=== PATIENT | female | born 1975 | race Caucasian/White ===

== ENCOUNTER → 2021-09-10 11:36 | Outpatient (BNVA) | payer OTHER, SELFPAY | PROVIDERS: PCP Internal Medicine; Visit Provider Nurse Practitioner Family ==

== ENCOUNTER → 2022-11-03 08:03 | Outpatient (BNVA) | payer OTHER, SELFPAY | PROVIDERS: PCP Internal Medicine; Visit Provider Nurse Practitioner Family ==

== ENCOUNTER 2023-05-10 15:28 | Outpatient (AMB) | payer OTHER, SELFPAY ==
--- NOTE | 2023-05-10 15:37 | A.OFFVIS_ITS ---
Intake Vital Signs 05/10/23 15:40 Height 5 ft 1 in Weight 212 lb BMI 40.1 BP 110/74 Blood Pressure Location Rt brachial Position Sitting Pulse 74 Pulse Source Pulse Oximeter Pulse Oximetry (%) 99 Oxygen Delivery Method Room Air Intake Visit Reasons: 6m follow up- Confirmed Intake Note: Patient presents for 6 month follow up. Patient states I'm having a little less headaches, I had one migraine while in [place] I had covid. Allergies Sulfa (Sulfonamide Antibiotics) Allergy (Mild, Verified 05/10/23 15:42) Hives Medication List - Last Reconciled 05/10/23 by MASON Koch atorvastatin 10 mg PO DAILY celecoxib 200 mg PO DAILY erenumab-aooe (Aimovig Autoinjector) 140 mg subcut monthly; 30 days lisinopril 20 mg PO DAILY omeprazole 20 mg PO BID 30 days prednisone 50 mg PO DAILY PRN rizatriptan 10 mg PO Q2H PRN 90 days sertraline 25 mg PO DAILY topiramate 125 mg (2.5 x 50 mg) PO BID 90 days HPI HPI Comments History of Present Illness Details 47-yr-old female presents for f/u visit. Pt reports she had Covid-19 in early Mar 2023 while she was traveling in [place]. It took her a while to recover, and had a residual cough for about a month which has since resolved. While sick, she had 1 day with more severe headache. She has been having approx 1 migraine lasting 1 day per month. May have an increase in headcahes in the dy[place] prior to the next Aimovig injection. Uses either rizatriptan or sumatriptan prn. PFSH Medical History Arthritis Surgical History Hx of cholecystectomy H/O: hysterectomy Family History Father Hypertension Frontal lobe dementia Mother Hypertension Diabetes Sister Fibromyalgia Social History Alcohol intake: current Alcohol intake frequency: holidays/special occasions only Patient Tobacco Use Status: Never used Tobacco Review of Systems Const All systems reviewed & are unremarkable except as noted in HPI and below Physical Exam Vital Signs: Last Vital Signs Pulse 74 05/10/23 15:40 BP 110/74 05/10/23 15:40 Pulse Ox 99 05/10/23 15:40 Oxygen Delivery Method Room Air 05/10/23 15:40 BMI result Body Mass Index 40.1 Const General: cooperative and no acute distress Orientation/consciousness: patient oriented x3 HEENT Head: Yes normocephalic Resp Effort & Inspection: normal respiratory effort and able to speak in complete sentences Neuro General: patient oriented x3, gait normal and CN's II-XI intact bilaterally Cognition (Neuro): normal cognition Motor exam (neuro): 5/5 motor strength present throughout Psych Appearance: grossly normal Mental Status: mental status grossly normal Speech and movement: Normal speech and movement present Affect: normal affect Attitude: cooperative Thought process: Normal thought process present Thought content: Normal thought content present Insight: Good insight present (Psych) Judgement: Good judgement present (Psych) Assessment & Plan Assessment & Plan (1) Migraine with aura: Code(s): G43.109 - Migraine with aura, not intractable, without status migrainosus (2) Cervicalgia: Code(s): M54.2 - Cervicalgia Plan Continue topiramate 125 mg b.i.d. Continue Aimovig 140 mg subcu q.month.? Continue rizatriptan or sumatriptan as needed. Tylenol 1-2 days before end of Aimovig injection cycle breakthrough headaches- if ineffective, consider gepant. ? f/u in 6 months or sooner prn Medications: New sumatriptan succinate 50 - 100 mg orally at onset of headache, may repeat in 2 hrs PRN; max 2 tabs per day or 4 tabs/week (may take with Ibuprofen) 36 tabs 1RF migraine headache 90 days Refilled erenumab-aooe (Aimovig Autoinjector) 140 mg subcut monthly; 1 mL 6RF 30 days topiramate 125 mg (2.5 x 50 mg) PO BID 450 tabs 1RF 90 days rizatriptan 1 tab at onset of migraine, may repeat in 2 hours (max 12 tabs/month) 10 mg PO Q2H PRN 36 tabs 1RF migraine headache 90 days Coding Level of Care Code Est Pt Level 4 (11066) Diagnoses Migraine with aura G43.109 Cervicalgia M54.2
[2023-05-10 15:40] VITALS: BP 110/74; PULSE 74; O2SAT 99; BMI 40.1
== END 2023-05-10 16:17 | disposition home or self-care (01) ==
PROVIDERS: Visit Provider Nurse Practitioner Family
DX: G43.109 Migraine with aura, not intractable, without status migrainosus (principal); M54.2 Cervicalgia
CPT/HCPCS: 99214

== ENCOUNTER → 2023-05-10 15:28 | Outpatient (BNVA) | payer OTHER, SELFPAY | PROVIDERS: Visit Provider Nurse Practitioner Family ==

== ENCOUNTER 2023-11-07 15:13 | Outpatient (AMB) | payer OTHER, SELFPAY ==
--- NOTE | 2023-11-07 15:26 | A.OFFVIS_ITS ---
Vital Signs 11/07/23 15:28 Height 5 ft 1 in Weight 215 lb 8 oz BMI 40.7 BP 120/82 Blood Pressure Location Lt brachial Position Sitting Pulse 60 Pulse Source Pulse Oximeter Pulse Oximetry (%) 97 Oxygen Delivery Method Room Air Intake Visit Reasons: 6 mo f/u/ LVM w/address Intake Note: Patient presents for 6 months f/u. Renew Aimovig. Migraines are getting better. Allergies Sulfa (Sulfonamide Antibiotics) Allergy (Mild, Verified 11/07/23 15:30) Hives Medication List - Last Reconciled 11/07/23 by MASON Koch atorvastatin 10 mg PO DAILY celecoxib 200 mg PO DAILY erenumab-aooe (Aimovig Autoinjector) 140 mg subcut monthly; 30 days lisinopril 20 mg PO DAILY omeprazole 20 mg PO BID 30 days prednisone 50 mg PO DAILY PRN rizatriptan 10 mg PO Q2H PRN 90 days sertraline 25 mg PO DAILY sumatriptan succinate 50 - 100 mg orally at onset of headache, may repeat in 2 hrs PRN; max 2 tabs per day or 4 tabs/week (may take with Ibuprofen) 90 days topiramate 125 mg (2.5 x 50 mg) PO BID 90 days HPI Comments Details: 48-yr-old female presents for f/u visit. Pt denies any significant interval medical changes. Pt reports she is having 2-4 breakthrough migraines per month, which respond to sumatriptan. May have an increase in headaches in the days prior to the next Aimovig injection. Uses either rizatriptan or sumatriptan prn. She is having an uptick in her neck pain, her arms can be sore. Thinks there is some relation to when her allergy s/s are increased. Trying to be better about doing her PT exercises and stretches. Prior to starting Aimovig, migraine attacks were 3 x's per week. Baseline headache characteristics: May have left-sided electric shocks in face and body for 1 day prior to onset of fluctuating mod-severe left eye/retro-orbital sharp, left foot will feel weird, heat sensitivity, nausea, vomiting Tends to occur in late afternoon now. Prior to Aimovig, tended to occur upon waking. [facility] Medical History Arthritis Surgical History Hx of cholecystectomy H/O: hysterectomy Family History Father Hypertension Frontal lobe dementia Mother Hypertension Diabetes Sister Fibromyalgia Social History Alcohol intake: current Alcohol intake frequency: holidays/special occasions only Patient Tobacco Use Status: Never used Tobacco Physical Exam Vital Signs: Last Vital Signs Pulse 60 11/07/23 15:28 BP 120/82 11/07/23 15:28 Pulse Ox 97 11/07/23 15:28 Oxygen Delivery Method Room Air 11/07/23 15:28 BMI result Body Mass Index 40.7 Const General: cooperative and no acute distress Orientation/consciousness: patient oriented x3 Resp Effort & Inspection: normal respiratory effort and able to speak in complete sentences Neuro General: patient oriented x3 Cranial nerves: Yes CN's II-XII intact bilaterally Cognition (Neuro): normal cognition Psych Appearance: grossly normal Mental Status: mental status grossly normal Speech and movement: Normal speech and movement present Affect: normal affect Attitude: cooperative Assessment & Plan Assessment & Plan (1) Migraine with aura: Code(s): G43.109 - Migraine with aura, not intractable, without status migrainosus Category: Medical (2) Cervicalgia: Code(s): M54.2 - Cervicalgia Category: Medical Plan Continue topiramate 125 mg b.i.d. Continue Aimovig 140 mg subcu q.month., as pt continues to have sognificant reduction in monthly migraine attacks since starting Aimovig many yrs ago. Continue rizatriptan or sumatriptan as needed. Tylenol 1-2 days before end of Aimovig injection cycle breakthrough headaches- if ineffective, consider gepant. Continue cervical exrcises, stretching. Refilled omeprazole for GERD s/s. ? f/u in 6 months or sooner prn Medications: Changed From omeprazole 20 mg PO BID 30 days 60 caps 3RF To omeprazole 20 mg PO BID 90 days 180 caps 1RF Refilled erenumab-aooe (Aimovig Autoinjector) 140 mg subcut monthly; 30 days 1 mL 6RF sumatriptan succinate (0.5 - 1 x 100 mg) 50 - 100 mg orally at onset of headache, may repeat in 2 hrs PRN; max 2 tabs per day or 4 tabs/week (may take with Ibuprofen) 90 days 36 tabs 1RF migraine headache rizatriptan 1 tab at onset of migraine, may repeat in 2 hours (max 12 tabs/month) 10 mg PO Q2H 90 days PRN 36 tabs 1RF migraine headache Coding Level of Care Code Est Pt Level 4 (70228) Diagnoses Migraine with aura G43.109 Cervicalgia M54.2
[2023-11-07 15:28] VITALS: BP 120/82; PULSE 60; O2SAT 97; BMI 40.7
== END 2023-11-07 16:08 | disposition home or self-care (01) ==
PROVIDERS: PCP Internal Medicine; Visit Provider Nurse Practitioner Family
DX: G43.109 Migraine with aura, not intractable, without status migrainosus (principal); M54.2 Cervicalgia
CPT/HCPCS: 99214

== ENCOUNTER → 2023-11-07 15:13 | Outpatient (BNVA) | payer OTHER, SELFPAY | PROVIDERS: PCP Internal Medicine; Visit Provider Nurse Practitioner Family ==

== ENCOUNTER 2024-05-24 14:24 | Outpatient (AMB) | payer OTHER, SELFPAY ==
[2024-05-24 14:31] VITALS: BP 122/78; BMI 40.2
--- NOTE | 2024-05-24 14:31 | A.OFFVIS_ITS ---
Vital Signs 05/24/24 14:31 Height 5 ft 1 in Weight 213 lb BMI 40.2 BP 122/78 Blood Pressure Location Rt brachial Position Sitting Intake Visit Reasons: 6 mo f/u Intake Note: Patient presents for follow up Allergies Sulfa (Sulfonamide Antibiotics) Allergy (Mild, Verified 05/24/24 14:35) Hives HPI Comments Details: 48-yr-old female presents for f/u visit. Pt denies any significant interval medical changes. Pt reports she was having 2-4 breakthrough migraines per month, which respond to sumatriptan. May have an increase in headaches in the days prior to the next Aimovig injecti on in the past. In May she was headache free. In Apr she had one headache which lasted 4 days she had to call out of work, and feels her headaches are well managed with Triptans and Aimovig. She is having an uptick in her neck pain, her arms can be sore. Thinks there is some relation to when her allergy s/s are increase and worse with cold weather. Trying to be better about doing her PT exercises and stretches, doesn't want to go to PT right now. Prior to starting Aimovig, migraine attacks were 3 x's per week. Baseline headache characteristics: May have left-sided electric shocks in face and body for 1 day prior to onset of fluctuating mod-severe left eye/retro-orbital sharp, left foot will feel weird, heat sensitivity, nausea, vomiting, Aura in left side only. Tends to occur in late afternoon now. Prior to Aimovig, tended to occur upon waking. PFSH Medical History Arthritis Surgical History Hx of cholecystectomy H/O: hysterectomy Family History Father Hypertension Frontal lobe dementia Mother Hypertension Diabetes Sister Fibromyalgia Social History Alcohol intake: current Alcohol intake frequency: holidays/special occasions only Patient Tobacco Use Status: Never used Tobacco Review of Systems Const All systems reviewed & are unremarkable except as noted in HPI and below Physical Exam Vital Signs: Last Vital Signs BP 122/78 05/24/24 14:31 BMI result Body Mass Index 40.2 Const General: cooperative, comfortable and no acute distress Nutritional Appearance: obese Orientation/consciousness: patient oriented x3 Eyes Pupils: Equal, round and reactive pupils present Neck Neck: Yes full ROM and Yes supple Resp Effort & Inspection: normal respiratory effort and able to speak in complete sentences Neuro General: patient oriented x3 Cranial nerves: Yes CN's II-XII intact bilaterally, Yes Facial sensation intact/muscles of mastication intact, Yes Equal, round and reactive pupils present, Yes Normal accommodation reflex present, Yes Nystagmus not present, Yes Midline tongue present, Yes Symmetric palate elevation present, Yes Ability to bilaterally rotate head present and Yes Ability to bilaterally elevate shoulders present Gait exam (Neuro): Normal gait present Motor exam (neuro): 5/5 motor strength present throughout and Normal motor muscle tone present throughout Deep tendon reflexes (DTR's): Right triceps reflex intensity grade: 2+, Left triceps reflex intensity grade: 2+, Rt Biceps (C5, C6): 2+, Left biceps reflex intensity grade: 2+, Right brachioradialis reflex intensity grade: 2+, Left brachioradialis reflex intensity grade: 2+, Right patellar reflex intensity grade: 2+ and Left patellar reflex intensity grade: 2+ Coordination: [id number] test normal Psych Insight: Good insight present (Psych) Judgement: Good judgement present (Psych) Assessment & Plan Assessment & Plan (1) Migraine with aura: Code(s): G43.109 - Migraine with aura, not intractable, without status migrainosus Category: Medical Qualifiers: Intractability: intractable Status migrainosus presence: without status migrainosus Qualified Code(s): G43.119 - Migraine with aura, intractable, without status migrainosus (2) Cervicalgia: Code(s): M54.2 - Cervicalgia Category: Medical Plan Patient is on Aimovig for chronic headache prevention and having less migraines. Sumatriptan, and Rizatriptan used for preventative migraines and onset of migraine control. She also uses Topiramate if the migraine doesn't break. Cervicalgia, worsens with the cold weather and allergies, she does PT at home stretching exercises and doesn't want to go to PT at this time. Refilled Omeprazole and Topiramate today will follow up in 6 months or can call if she has concerns. Medications: Refilled omeprazole 20 mg PO BID 90 days 180 caps 1RF topiramate 125 mg (2.5 x 50 mg) PO BID 90 days 450 tabs 1RF Coding Level of Care Code Est Pt Level 3 (00913) Diagnoses Intractable migraine with aura without status migrainosus G43.119 Intractability: intractable Status migrainosus presence: without status migrainosus Cervicalgia M54.2
== END 2024-05-24 15:33 | disposition home or self-care (01) ==
PROVIDERS: PCP Internal Medicine; Visit Provider Physician Assistant Medical
DX: G43.119 Migraine with aura, intractable, without status migrainosus (principal); M54.2 Cervicalgia
CPT/HCPCS: 99213

== ENCOUNTER 2025-01-17 14:45 | Outpatient (AMB) | payer OTHER, SELFPAY ==
--- OUTSIDE RECORDS SUMMARY | 2025-01-17 14:48 | XMS_ITS | Encounter Summary ---
Author Organization [facility] Address [address] [place] [address] Phone Care Team Providers Care Cert Occupational Therapy Asst Name Role Phone Isaiah Lacey DO Unavailable Cheri Aguilar MD Unavailable Isaiah Lacey DO Primary Care Provider [phone] Encounter Details Date Type Department Care Team (Late st Contact Info) Description 07/23/2024 Ancillary Orders [facility], [address] [address] Isaiah Lacey DO [address] [facility], [facility] [address] [place] [address] [email or web address] Abnormal mammogram (Primary Dx) Social History Tobacco Use Types Packs/Day Years Used Date Smoking Tobacco: Never Smokeless Tobacco: Never Alcohol Use Standard Drinks/Week Comments Not Currently 0 (1 standard drink = 0.6 oz pur e alcohol) once every couple of months Child or Family Care Answer Date Record ed Do you have problems with on e of the following making it difficult for you to work, study, or receive health care? No 03/20/2024 Education Answer Date Recorded Are you interested in help w ith more adult education (for example, completing high school, GED, job training, learning the Polish language, technical skills, or developing parenting skills)? No 03/20/2024 Are you concerned about learning? Not on file 03/20/2024 No 03/20/2024 Yes 03/20/2024 Food Answer Date Recorded Within the past 6 months we worried whether our food would run out before we got money to buy more. Never True 03/20/2024 Within the past 6 months the food we bought just didn't last and we didn't have enough money to get more. Never True Residential Stability Answer Date Recor ded What is your housing situation today? I have megan sing 03/20/2024 How many times have you move d in the past 12 months? Zero (I did not move) 03/20/2024 Paying for Meds Answer Date Recorded Do you have trouble paying for medicines? No 03/20/2024 Paying Utility Bills Answer Date Record ed Do you have trouble paying your heating or elect ricity bill? No 03/20/2024 Transportation Answer Date Recorded Has the lack of transportati on kept you from medical appointments or from getting medications? No 03/20/2024 Unemployment Answer Date Recorded Are you currently unemployed or working on a part-time or temporary basis, and looking for work? No 04/06/2022 Digital Access Answer Date Recorded No 03/20/2024 Yes 03/20/2024 Do you have reliable internet access at home? Ye s 03/20/2024 Do you have a device (e.g., phone, tablet, computer) with a working camera? 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 Not on file Not on file Not on f ile documented as of this encounter Plan of Treatment Upcoming Encounters Date Type Department Care Team (Late st Contact Info) Description 03/20/2025 Procedure Pass [facility] Admitting Dept Virtual Department [address] [place] [phone] 03/20/2025 11:15 AM EDT Hospital Encounter [facility] Virtual Department [address] [place] [phone] Kyle Jerez MD [address] [place] [address] [phone] 03/20/2025 11:15 AM EDT - 03/20/2025 11:30 AM EDT Surgery [facility] Admitting Dept Virtual Department [address] [place] [address] Kyle Jerez MD [address] [place] [address] COLONOSCOPY 03/21/2025 9:00 AM EDT Office Visit [facility] [address] [place] [address] Isaiah Lacey DO [address] [facility], [address] [place] [address] Scheduled Procedures Name Priority Associated Diagnoses Date/Ti ar COLONOSCOPY Screen for colon cancer 03/20/2025 11:15 AM EDT documented as of this encounter Results * BI US BREAST LIMITED (LEFT) (08/21/2024 2:44 PM EST) Anatomical Region Laterality Modality Breast Left, Breast Bilateral Left Ul trasound 08/21/2024 2:21 PM EST Impressions 08/21/2024 2:55 PM EST Group of cysts or, less likely, dilated ducts, correlating with masses on mammography located in the 8:00 position 7 cm deep to the nipple on ultrasound. This is very likely benign. A six-month follow-up left breast ultrasound is recommended. BI-RADS 3 PROBABLY BENIGN Short interval follow-up suggested Results and recommendations were communicated to the patient at time of examination. Narrative 08/21/2024 2:55 PM EST BI MAMMOGRAM DIAGNOSTIC WITH TOMOSYNTHESIS WITH CAD (LEFT), BI US BREAST LIMITED (LEFT) Additional patient information: COMPARISON: Comparison is made with relevant prior imaging. Breast composition: There are scattered areas of fibroglandular density. FINDINGS: Left Mammogram: Persisting mass on the additional mammographic views in the posterior lower inner aspect. Left Ultrasound: Targeted ultrasound was performed . Correlating with the mass on mammography in the 8:00 position 7 cm deep to the nipple on ultrasound is thinly septated mass which is otherwise anechoic. It measures 1.9 cm x 1.8 cm x 0.5 cm. Margins are smooth and orientation parallel. There is enhancement of sound posteriorly. us Isaiah Sayda Deepthi DO IMG US BREAST Final Result * BI MAMMOGRAM DIAGNOSTIC WITH TOMOSYNTHESIS WITH CAD (LEFT) (08/21/2024 2:13 PM EST) Anatomical Region Laterality Modality Breast Left Left Mammography 08/21/2024 2:21 PM EST Impressions 08/21/2024 2:55 PM EST Group of cysts or, less likely, dilated ducts, correlating with masses on mammography located in the 8:00 position 7 cm deep to the nipple on ultrasound. This is very likely benign. A six-month follow-up left breast ultrasound is recommended. BI-RADS 3 PROBABLY BENIGN Short interval follow-up suggested Results and recommendations were communicated to the patient at time of examination. Narrative 08/21/2024 2:55 PM EST BI MAMMOGRAM DIAGNOSTIC WITH TOMOSYNTHESIS WITH CAD (LEFT), BI US BREAST LIMITED (LEFT) Additional patient information: COMPARISON: Comparison is made with relevant prior imaging. Breast composition: There are scattered areas of fibroglandular density. FINDINGS: Left Mammogram: Persisting mass on the additional mammographic views in the posterior lower inner aspect. Left Ultrasound: Targeted ultrasound was performed . Correlating with the mass on mammography in the 8:00 position 7 cm deep to the nipple on ultrasound is thinly septated mass which is otherwise anechoic. It measures 1.9 cm x 1.8 cm x 0.5 cm. Margins are smooth and orientation parallel. There is enhancement of sound posteriorly. Procedure Note Mark Mancera MD - 08/21/2024 BI MAMMOGRAM DIAGNOSTIC WITH TOMOSYNTHESIS WITH CAD (LEFT), BI US BREASTLIMITED (LEFT) Additional patient information: COMPARISON: Comparison is made with relevant prior imaging. Breast composition: There are scattered areas of fibroglandular density. FINDINGS: Left Mammogram: Persisting mass on the additional mammographic views in the posteriorlower inner aspect. Left Ultrasound: Targeted ultrasound was performed . Correlating with themass on mammography in the 8:00 position 7 cm deep to the nipple onultrasound is thinly septated mass which is otherwise anechoic. Itmeasures 1.9 cm x 1.8 cm x 0.5 cm. Margins are smooth and orientationparallel. There is enhancement of sound posteriorly. IMPRESSION: Group of cysts or, less likely, dilated ducts, correlating with masses onmammography located in the 8:00 position 7 cm deep to the nipple onultrasound. This is very likely benign. A six-month follow-up left breastultrasound is recommended. BI-RADS 3 PROBABLY BENIGN Short interval follow-up suggested Results and recommendations were communicated to the patient at time ofexamination. Isaiah Lacey DO IMG MG EXAMS Final Result documented in this encounter Visit Diagnoses Diagnosis Abnormal mammogram- Primary Abnormal mammogram, unspecified Abnormal mammogram Abnormal mammogram, unspecified Abnormal mammogram Abnormal mammogram, unspecified Screen for colon cancer Special screening for malignant neoplasms, colon documented in this encounter Additional Health Concerns Infection Onset Date Last Indicated Resolved Time CoV-Risk Comment:Per Ambulatory Triage Form 09/20/2024 09/20/202410/01 1:23 AM EDT Assessment Noted Time PHQ-2 Depression Total Score: 0 03/20/20 24 8:45 AM EDT documented as of this encounter Care Teams Cert Occupational Therapy Asst Relationship Specialty Start Date End Date Isaiah Lacey DO [address] [address] PCP - General 07/06/17 Isaiah Lacey DO [address] [address] Historical LMR Provider 04/20/17 Cheri Aguilar MD [address] [facility], [facility] [address] [place] [address] [email or web address] Historical LMR Provider 04/20/17 documented as of this encounter Additional Source Comments The information contained in this document represents components of the legal health record. It is not the complete legal health record.[facility]
--- NOTE | 2025-01-17 15:04 | MHC.OFFVIS ---
Vital Signs 01/17/25 15:07 Height 5 ft 1 in Weight 204 lb BMI 38.5 BP 120/78 Blood Pressure Location Lt brachial Position Sitting Pulse 69 Pulse Source Pulse Oximeter Pulse Oximetry (%) 99 Oxygen Delivery Method Room Air Intake Visit Reasons: Follow Up Intake Note: Patient presents follow up Migraine. Migraines have been ok. Currently has one at the moment. 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 Pt denies any significant interval medical changes. Pt reports 1 headache in October then 1 in December and last 2 days had a migraine which will not break. She took Sumatriptan 2 doses and now it has subsided to a dull painl. She has an increase in headaches just days prior to the next Aimovig injection. She has been testing the oxyband watches for sleep medicine as she works in sleep medicine also. Would like to have one injection a month dispensed monthly through her insurance. She is trying to get the copay card in order to get 3 injectables at one time through [facility] so it is more affordable. She has missed 0 days from work since starting Aimovig and the headaches have improved in severity, though 8/10 now with arms and face tingling sensation. Frequency has improved to every other month now. She still contineus Triptans for preventative episodic onset of migraines, and Aimovig usually manage the pain well for chronic migraines. She also takes Topiramate as a daily preventive 125mg BID and this also helps her sleep through the night. Neck pain has improved with PT, though gets worse as the weather changes. She has allergies, worse in January and environmental triggers such as dander, pollen. Her diet is okay, she walks 3x a week, 20min during her lunch as tolerable. Memory and mood is stable. Migraine frequency/ severity prior to starting Aimovid 3/week and 10/10 intensity and always upon waking in the AM. Baseline headache characteristics: She has left-sided electric shocks in face and body for 1 day prior to onset of fluctuating mod-severe left eye/retro-orbital sharp, left foot will feel weird, heat sensitivity, nausea, dizziness, vertigo, denies vomiting. Tinnitus in l. ear. Prodrome is the aura on left side with lack of focus, always in late afternoons. PFSH Medical History Arthritis Surgical History Hx of cholecystectomy H/O: hysterectomy Family History Father Hypertension Frontal lobe dementia Mother Hypertension Diabetes Sister Fibromyalgia Social History Alcohol intake: current Alcohol intake frequency: holidays/special occasions only Patient Tobacco Use Status: Never used Tobacco Physical Exam Vital Signs: Last Vital Signs Pulse 69 01/17/25 15:07 BP 120/78 01/17/25 15:07 Pulse Ox 99 01/17/25 15:07 Oxygen Delivery Method Room Air 01/17/25 15:07 BMI result Body Mass Index 38.5 Const General: cooperative, comfortable and no acute distress Nutritional Appearance: obese Orientation/consciousness: patient oriented x3 Eyes Pupils: Equal, round and reactive pupils present Neck Neck: Yes full ROM and Yes supple Neuro Other: PCOS chin bilateral hair line. General: patient oriented x3 Cranial nerves: Yes Equal, round and reactive pupils present, Yes Normal accommodation reflex present, Yes Nystagmus not present, Yes Normal facial strength present, Yes Midline tongue present, Yes Symmetric palate elevation present, Yes Ability to bilaterally rotate head present and Yes Ability to bilaterally elevate shoulders present Cognition (Neuro): normal cognition Gait exam (Neuro): Normal gait present Motor exam (neuro): 5/5 motor strength present throughout and Normal motor muscle tone present throughout Psych Appearance: grossly normal Thought process: Normal thought process present Thought content: Normal thought content present Insight: Good insight present (Psych) Judgement: Good judgement present (Psych) Results Reviewed Results Reviewed: lab requested from pcp Assessment & Plan Assessment & Plan (1) Excessive daytime sleepiness: Code(s): G47.19 - Other hypersomnia Category: Medical (2) Migraine with aura: Code(s): G43.109 - Migraine with aura, not intractable, without status migrainosus Category: Medical Qualifiers: Status migrainosus presence: without status migrainosus Intractability: intractable Qualified Code(s): G43.119 - Migraine with aura, intractable, without status migrainosus (3) Cervicalgia: Code(s): M54.2 - Cervicalgia Category: Medical Plan Chronic excessive daytime fatigue she is testing the 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 Patient is on Aimovig for chronic headache prevention and having less migraines. Sumatriptan, and Rizatriptan used for preventative migraines and onset of migraine control. She also uses Topiramate if the migraine doesn't break. Cervicalgia, worsens with the cold / hot weather and allergies, she walks daily at lunch time as tolerable. Refilled metoclopramide today, as she is uncertain how long prior to her next Aimovig injection or refill. Medications: Changed From metoclopramide HCl 5 - 10 mg (1 - 2 x 5 mg) PO QID 30 days 60 tabs 0RF M54.2 - Cervicalgia To metoclopramide HCl 5-10mg tablets, may take up to 2 tablets for migraines. 5 - 10 mg (1 - 2 x 5 mg) PO BID 30 tabs 0RF migraines 30 days MDD 4 tablets M54.2 - Cervicalgia Patient Instructions: Sleep Hygiene provided: set a scheduled bedtime and wake time to help regulate the circadian rhythm and balance the release of pituitary hormones. Sleep in a dark room, temperatures below 68 degrees, and no devices n bed. Limit caffeinated products 6 hours prior to bed, and limit fluids 2-4 hours prior to bed. Gentle night yoga, diffusing essential oils, and playing soft music can be relaxing. Coding Level of Care Code Est Pt Level 4 (72221) Diagnoses Excessive daytime sleepiness G47.19 Intractable migraine with aura without status migrainosus G43.119 Status migrainosus presence: without status migrainosus Intractability: intractable Cervicalgia M54.2 Time Spent (min) 20 Comment Improving on Aimovig.
[2025-01-17 15:07] VITALS: BP 120/78; PULSE 69; O2SAT 99; BMI 38.5
== END 2025-01-17 15:41 | disposition home or self-care (01) ==
LOC: HO.HSMS 14:46
PROVIDERS: PCP Internal Medicine; Visit Provider Physician Assistant Medical
DX: G47.19 Other hypersomnia (principal); G43.119 Migraine with aura, intractable, without status migrainosus; M54.2 Cervicalgia
CPT/HCPCS: 99214